=== PATIENT | female | born 1990 | race Caucasian/White ===

== ENCOUNTER 2019-08-02 13:32 | Emergency (ER) | payer BC ==
[2019-08-02 13:45] VITALS: BP 149/94; PULSE 119
[2019-08-02] MEDS ORDERED: Ketorolac 60 MG/2 ML SDV IM ONE (14:01)
--- NOTE | 2019-08-02 14:16 | EDM.PDOC ---
ED HPI GENERAL MEDICAL PROBLEM - General Chief Complaint: Lower Extremity Injury/Pain Stated Complaint: LEFT ANKLE INJURY Time Seen by Provider: 08/02/19 13:34 Source of Information: Reports: Patient History Limitations: Reports: No Limitations - History of Present Illness INITIAL COMMENTS - FREE TEXT/NARRATIVE: HISTORY AND PHYSICAL: History of present illness: Patient is a 28-year-old female who presents to the ED today with concern of left ankle injury that occurred just prior to arrival to the ED. Patient states she was taking the garbage out in her garbage can was surrounded by ice. Patient states that she twisted her left ankle and heard a pop. Patient states she caught herself before falling but has had pain with walking on the ankle since. Patient denies any prior injury or trauma to the ankle or any other symptoms or concerns. Patient denies any head injury or loss of consciousness. Patient denies fever, chills, chest pain, shortness of breath, or cough. Denies headache, neck stiff ness, change in vision, syncope, or near syncope. Denies nausea, vomiting, abdominal pain, diarrhea, constipation, or dysuria. Has not noted any blood in urine or stool. Patient has been eating and drinking appropriately. Review of systems: As per history of present illness and below otherwise all systems reviewed and negative. Past medical history: As per history of present illness and as reviewed below otherwise noncontributory. Surgical history: As per history of present illness and as reviewed below otherwise noncontributory. Social history: See social history for further information Family history: As per history of present illness and as reviewed below otherwise noncontributory. Physical exam: General: Patient is alert, oriented, and in no acute distress. Patient sitting comfortably on exam table. HEENT: Atraumatic, normocephalic, pupils equal and reactive bilaterally, negative for conjunctival pallor or scleral icterus, mucous membranes moist, TMs normal bilaterally, throat clear, neck supple, nontender, trachea midline. No drooling or trismus noted. No meningeal signs. No hot potato voice noted. Lungs: Clear to auscultation, breath sounds equal bilaterally, chest nontender. Heart: S1S2, regular rate and rhythm without overt murmur Abdomen: Soft, nondistended, nontender. Negative for masses or hepatosplenomegaly. Negative for costovertebral tenderness. Pelvis: Stable nontender. Genitourinary: Deferred. Rectal: Deferred. Skin: Intact, warm, dry. No lesions or rashes noted. Extremities: Negative for cords or calf pain. Neurovascular unremarkable. Patient has a moderate amount of edema of the left lateral malleolus with pain to palpation of this area. Patient has limited range of motion of the left ankle due to pain. Dorsalis pedis and posterior tibial pulses are grossly intact of the left lower extremity with capillary refill less than 2 seconds. Neuro: Awake, alert, oriented. Cranial nerves II through XII unremarkable. Cerebellum unremarkable. Motor and sensory unremarkable throughout. Exam nonfocal. Notes: Discussed importance for follow-up with an orthopedic provider. Voices understanding and is agreeable to plan of care. Denies any further questions or concerns at this time. Diagnostics: Ankle XR Therapeutics: Splint placed by nursing staff, crutches, Toradol Prescription: Tramadol Impression: Lateral malleolar fracture fracture, left Plan: 1. Rest, ice, elevate the affected extremity. You can apply ice 15 minutes on, 15 minutes off. Keep splint on until orthopedic follow up. 2. Tylenol and/or Ibuprofen as directed for pain management or discomfort. Take medication as prescribed for moderate-severe pain. 3. Follow up with the Orthopedic provider as discussed. Return to the ED as needed and as discussed. 4. You are to be non-weight bearing until orthopedic follow up. Definitive disposition and diagnosis as appropriate pending reevaluation and review of above. left ankle Pain Score (Numeric/FACES): 9 - Related Data Allergies Allergy/AdvReac Type Severity Reaction Status Date / Time No Known Allergies Allergy Verified 03/17/14 15:48 Home Meds: Home Meds Norethindrone AC-Eth Estradiol [Junel 1 mg-20 Mcg Tablet] 1 tab PO DAILY [History] Past Medical History Cardiovascular History: Reports: Other (See Below) Other Cardiovascular History: suns tachycardia Other Respiratory History: seasonal allergies, hx of childhood asthma Musculoskeletal History: Reports: None Other Musculoskeletal History: right knee surgery, left pinky tendon surgery, right shoulder surgery - Past Surgical History Musculoskeletal Surgical History: Reports: Knee Replacement, Other (See Below) Social & Family History - Family History Family Medical History: Noncontributory - Tobacco Use Smoking Status *Q: Never Smoker - Recreational Drug Use Recreational Drug Use: No Review of Systems - Review of Systems Review Of Systems: Comprehensive ROS is negative, except as noted in HPI. ED EXAM, GENERAL - Physical Exam Exam: See Below (see dictation) Course - Vital Signs Last Recorded V/S: Last Vital Signs Temp 97.2 F 08/02/19 13:43 Pulse 119 H 08/02/19 13:43 Resp 22 H 08/02/19 13:43 BP 149/94 H 08/02/19 13:43 Pulse Ox 95 08/02/19 13:43 - Orders/Labs/Meds Meds: Medications Discontinued Medications Generic Name Dose Route Start Last Admin Trade Name Freq PRN Reason Stop Dose Admin Ketorolac Tromethamine 60 mg 08/02/19 14:01 08/02/19 14:13 Toradol IM 08/02/19 14:02 60 mg ONETIME ONE Administration Departure - Departure Time of Disposition: 14:24 Disposition: Home, Self-Care 01 Clinical Impression: Lateral malleolar fracture Qualifiers: Encounter type: initial encounter Fracture type: closed Fracture alignment: nondisplaced Laterality: left Qualified Code(s): S82.65XA - Nondisplaced fracture of lateral malleolus of left fibula, initial encounter for closed fracture - Discharge Information Referrals: Morales Wisdom MD [Primary Care Provider] - Forms: ED Department Discharge Additional Instructions: The following information is given to patients seen in the emergency department who are being discharged to home. This information is to outline your options for follow-up care. We provide all patients seen in our emergency department with a follow-up referral. The need for follow-up, as well as the timing and circumstances, are variable depending upon the specifics of your emergency department visit. If you don't have a primary care physician on staff, we will provide you with a referral. We always advise you to contact your personal physician following an emergency department visit to inform them of the circumstance of the visit and for follow-up with them and/or the need for any referrals to a consulting specialist. The emergency department will also refer you to a specialist when appropriate. This referral assures that you have the opportunity for follow-up care with a specialist. All of these measure are taken in an effort to provide you with optimal care, which includes your follow-up. Under all circumstances we always encourage you to contact your private physician who remains a resource for coordinating your care. When calling for follow-up care, please make the office aware that this follow-up is from your recent emergency room visit. If for any reason you are refused follow-up, please contact the [facility] Emergency Department at and asked to speak to the emergency department charge nurse. [facility] [address] [place] [address] [facility] [address] [place] [id number] [facility] - Orthopedic [facility] Professional Building [address] [place] [address], [address] [place] [address] 1. Rest, ice, elevate the affected extremity. You can apply ice 15 minutes on, 15 minutes off. Keep splint on until orthopedic follow up. 2. Tylenol and/or Ibuprofen as directed for pain management or discomfort. Take medication as prescribed for moderate-severe pain. 3. Follow up with the Orthopedic provider as discussed. Return to the ED as needed and as discussed. 4. You are to be non-weight bearing until orthopedic follow up. Sepsis Event Note - Evaluation Sepsis Screening Result: No Definite Risk - Focused Exam Vital Signs: Vital Signs Temp Pulse Resp BP Pulse Ox 08/02/19 13:43 97.2 F 119 H 22 H 149/94 H 95 Date Exam was Performed: 08/02/19 Time Exam was Performed: 14:24
--- NOTE | 2019-08-02 14:17 | CR ---
Left ankle: 3 views left ankle were obtained. Comparison: No previous ankle study. Slightly displaced fracture noted within the lateral malleolus. Fracture is displaced up 3.0 mm. No additional fracture is seen. Soft tissue swelling is noted. Impression: 1. Mildly displaced lateral malleolar fracture. 2. Soft tissue swelling. Diagnostic code #3 Study was dictated in [place] Standard Time
== END 2019-08-02 14:45 | disposition home or self-care (01) ==
LOC: MW.ED 13:32
DX: S82.65XA Nondisplaced fracture of lateral malleolus of left fibula, initial encounter for closed fracture (principal); X50.1XXA Overexertion from prolonged static or awkward postures, initial encounter; Y93.89 Activity, other specified; Y92.89 Other specified places as the place of occurrence of the external cause
CPT/HCPCS: 29515; 73610; 96372; 99283; J1885

== ENCOUNTER 2019-08-06 12:01 | Day surgery (SDC) | payer BC ==
[~2019-08-06 12:01] MED LIST: Acetaminophen/HYDROcodone 325-5 MG Tab PO PRN; Lactated Ringers 1,000 ML IV SCH; ceFAZolin 2 GM in Premix Bag 1 BAG IV SCH
--- NOTE | 2019-08-06 13:28 | PCM.PREANE ---
Preanesthetic Assessment - Anesthesia/Transfusion/Family Hx Anesthesia History: Prior Anesthesia Reaction Family History of Anesthesia Reaction: No Transfusion History: No Prior Transfusion(s) - Review of Systems General: No Symptoms Pulmonary: No Symptoms Cardiovascular: No Symptoms Gastrointestinal: No Symptoms Neurological: No Symptoms Other: Reports: None - Physical Assessment NPO Status Date: 08/05/19 Vital Signs: Last Vital Signs Temp 99.0 F 08/06/19 12:50 Pulse 96 08/06/19 12:50 Resp 16 08/06/19 12:50 BP 121/73 08/06/19 12:50 Pulse Ox 96 08/06/19 12:50 Height: 5 ft 10 in Weight: 81.647 kg ASA Class: 1 Mental Status: Alert & Oriented x3 Airway Class: Mallampati = 2 Dentition: Reports: Normal Dentition ROM/Head Extension: Full Lungs: Clear to Auscultation, Normal Respiratory Effort Cardiovascular: Regular Rate, Regular Rhythm - Lab Values: Laboratory Last Values Urine HCG, Qual NEGATIVE (NEGATIVE) 08/06/19 06:00 - Allergies Allergies/Adverse Reactions: Allergies Allergy/AdvReac Type Severity Reaction Status Date / Time No Known Allergies Allergy Verified 08/05/19 12:18 - Blood Blood Available: No - Anesthesia Plan Pre-Op Medication Ordered: None - Acknowledgements Anesthesia Type Planned: General Anesthesia Pt an Appropriate Candidate for the Planned Anesthesia: Yes Alternatives and Risks of Anesthesia Discussed w Pt/Guardian: Yes Pt/Guardian Understands and Agrees with Anesthesia Plan: Yes Additional Comments: PLAN: ga/lma PreAnesthesia Questionnaire HEENT History: Reports: Other (See Below) Other HEENT History: wears glasses/contacts Cardiovascular History: Reports: Arrhythmia, Other (See Below) Other Cardiovascular History: hx of "inappropriate sinus tachycardia" Respiratory History: Reports: Asthma Other Respiratory History: has asthma as a child- no symptoms or inhaler since the age of 18 Genitourinary History: Reports: Renal Calculus Other Genitourinary History: has passes kidney stones Musculoskeletal History: Reports: Arthritis, Fracture Other Musculoskeletal History: right knee surgery, left pinky tendon surgery, right shoulder surgery Neurological History: Reports: Concussion, Migraines - Past Surgical History Head Surgeries/Procedures: Reports: None Musculoskeletal Surgical History: Reports: Arthroscopic Knee, Shoulder Surgery, Other (See Below) Other Musculoskeletal Surgeries/Procedures:: 2 right knee arthroscopies, 2 left pinky finger surgeries (tendon and joint repair), right shoulder AC reconstruction - SUBSTANCE USE Smoking Status *Q: Never Smoker Recreational Drug Use History: No - HOME MEDS Home Medications: Home Meds Norethindrone AC-Eth Estradiol [Junel 1 mg-20 Mcg Tablet] 1 tab PO DAILY [History] HYDROcodone/Ibuprofen [Vicoprofen] 1 tab PO ASDIRECTED PRN 08/05/19 [History] oxyCODONE HCl/Acetaminophen [Percocet 5-325 mg Tablet] 1 each PO TID #21 tablet 08/06/19 [Rx] oxyCODONE HCl/Acetaminophen [Percocet 5-325 mg Tablet] 1 each PO TID #21 tablet 08/06/19 [Rx] oxyCODONE HCl/Acetaminophen [Percocet 5-325 mg Tablet] 1 each PO TID #21 tablet 08/06/19 [Rx] - CURRENT (IN HOUSE) MEDS Current Meds: Current Medications Hydrocodone Bitart/Acetaminophen ([place] 325-5 Mg) 1 tab PO Q6H PRN PRN Reason: Pain Cefazolin Sodium/Dextrose 2 gm (/ Premix) 50 mls @ 100 mls/hr IV ONCALL JILLIAN Lactated Ringer's (Ringers, Lactated) 1,000 mls @ 100 mls/hr IV ASDIRECTED JILLIAN
[2019-08-06] MEDS ORDERED: Ondansetron 4 MG/2 ML SDV ONE ×2 (13:29→16:15)
[2019-08-06] MEDS ORDERED: Lidocaine 2% 5 ML SDV ONE (13:29)
[2019-08-06] MEDS ORDERED: Propofol 200 MG/20 ML SDV ONE ×2 (13:30→15:24)
[2019-08-06] MEDS ORDERED: fentaNYL 250 MCG/5 ML SDV ONE (13:30)
[2019-08-06] MEDS ORDERED: Midazolam 1 MG/ML 2 ML SDV ONE ×2 (13:30→15:24)
[2019-08-06] MEDS ORDERED: EPINEPHrine 1:10,000 1 MG/10 ML Syringe IVPUSH PRN (14:20)
[2019-08-06] MEDS ORDERED: Atropine 0.1 MG/ML 10 ML Syringe IVPUSH PRN ×2 (14:20)
[2019-08-06] MEDS ORDERED: 50% Dextrose in Water 50 ML Syringe IVPUSH PRN (14:20)
[2019-08-06] MEDS ORDERED: Albuterol 0.083% 2.5 MG/3 ML Neb Soln NEB PRN (14:20)
[2019-08-06] MEDS ORDERED: Naloxone 0.4 MG/ML Syringe IVPUSH PRN (14:20)
[2019-08-06] MEDS ORDERED: fentaNYL 100 MCG/2 ML SDV ONE (15:24)
[2019-08-06] MEDS ORDERED: Scopolamine 1.5 MG Transdermal Patch ONE (15:36)
[2019-08-06] MEDS ORDERED: ceFAZolin/Dextrose,Iso-Osmotic 2 GM/50 ML Duplex Bag IV ONE (15:39)
[2019-08-06] MEDS ORDERED: Ketorolac 30 MG/ML SDV ONE (16:15)
[2019-08-06] MEDS ORDERED: Dexamethasone 4 MG/ML 5 ML MDV ONE (16:15)
--- NOTE | 2019-08-06 16:19 | PCM.OPNOTE ---
- General Post-Op/Procedure Note Date of Surgery/Procedure: 08/06/19 Operative Procedure(s): orif left distal fibula Pre Op Diagnosis: left distal fibula fracture, closed Post-Op Diagnosis: Same Anesthesia Technique: General ET Tube Primary Surgeon: Alon Woodson EBL in mLs: 25 Complications: None Condition: Good
[2019-08-06] MEDS ORDERED: Ondansetron 4 MG/2 ML SDV IVPUSH PRN (16:23)
[2019-08-06] MEDS ORDERED: fentaNYL 100 MCG/2 ML SDV IVPUSH PRN (16:23)
[2019-08-06] MEDS ORDERED: Phenylephrine/Normal Saline 100 MCG/ML 10 ML Syringe ONE (16:47)
[2019-08-06] MEDS: HYDROmorphone 2 MG/ML Syringe IVPUSH PRN ×3 (17:05→18:00)
[2019-08-06] MEDS: fentaNYL 100 MCG/2 ML SDV IVPUSH PRN ×2 (17:13→17:19)
[2019-08-06] MEDS ORDERED: Acetaminophen/HYDROcodone 325-5 MG Tab PO PRN (17:37)
--- NOTE | 2019-08-06 17:46 | PCM.POSTAN ---
POST ANESTHESIA ASSESSMENT - MENTAL STATUS Mental Status: Alert, Oriented - VITAL SIGNS Vital Signs: Last Vital Signs Temp 37.2 C 08/06/19 12:50 Pulse 73 08/06/19 17:20 Resp 13 08/06/19 17:20 BP 108/52 L 08/06/19 17:20 Pulse Ox 96 08/06/19 17:20 - RESPIRATORY Respiratory Status: Respiratory Rate WNL, Airway Patent, O2 Saturation Stable - CARDIOVASCULAR CV Status: Blood Pressure Stable, Slow Pulse Rate - GASTROINTESTINAL GI Status: No Symptoms - PAIN Pain Score: 5 - POST OP HYDRATION Hydration Status: Adequate & Stable - OBSERVATIONS Free Text/Narrative:: The patient tolerated the procedure well. There were no apparent anesthetic complications at this time. Discharge to phase 2 per criteria.
--- NOTE | 2019-08-06 18:59 | OR ---
SURGEON: Alon Woodson DATE OF PROCEDURE: 08/06/2019 PREOPERATIVE DIAGNOSIS: Left distal fibular fracture, closed. POSTOPERATIVE DIAGNOSIS: Left distal fibular fracture, closed. PROCEDURE: Open reduction and internal fixation, left distal fibular fracture. PRIMARY SURGEON: Alon Woodson DO. ANESTHESIA: General endotracheal intubation. FLUID: Lactated Ringer's solution. ESTIMATED BLOOD LOSS: 25 mL. COMPLICATION: None. SPECIMEN: None. DISCHARGE DISPOSITION: Stable to PACU. HISTORY AND INDICATION FOR PROCEDURE: The patient was seen preoperatively by myself in the clinic. She had been seen at the ER and found to have a distal fibula fracture. Preoperative imaging confirmed the above-mentioned diagnosis. Risks and benefits of the procedure were explained to the patient. Informed consent was obtained. DETAILS OF PROCEDURE: The patient was seen preoperatively by myself and the Anesthesia staff in the preoperative holding area where the operative site was marked. She was brought to the operative suite by the Anesthesia staff where general anesthesia was administered. A well-padded tourniquet was placed on the left thigh and the left lower extremity was then prepped and draped in a sterile manner. Time-out was called identifying the correct patient, the correct procedure, the correct site, and that antibiotics had been given within appropriate period of time. The left lower extremity was exsanguinated. Tourniquet was raised to 250 mmHg. An incision was made about 1.5 cm distal to the tip of the fibula extending proximally about 12 cm. I found a rent in the fascia and then elevated directly from the bone through the soft tissues to avoid any nerve injury. The superficial peroneal nerve was not visualized. The fibular shaft was then exposed laterally. The fracture site was then spread open using an elevator and a [place], then irrigated to remove any blood clots. I then reduced the distal fibular fracture with bone tenaculum. I also then placed a lag screw across this to hold it in place. I then placed my plate, which was a distal anatomic [place] locking plate. I then placed two screws through this to get it in correct position and took films. This showed it to be in good position. I then drilled and filled the rest of the holes in the plate and then took my final films, which showed the fracture well reduced and the plate and screws to be in good position. I then had my assist close with 0 Stratafix and 3-0 nylon interrupted horizontal mattress sutures followed by Betadine-soaked Adaptic sponge, ABD, and Bernard wrap. The patient was then placed into a walker boot, nonweightbearing, and then discharged to the PACU in stable condition. [id number] / MODL /[id number]
--- NOTE | 2019-08-06 19:35 | PCM48HPAN ---
Post Anesthesia Note - EVALUATION WITHIN 48HRS OF ANESTHETIC Vital Signs in Normal Range: Yes Patient Participated in Evaluation: Yes Respiratory Function Stable: Yes Airway Patent: Yes Cardiovascular Function Stable: Yes Hydration Status Stable: Yes Pain Control Satisfactory: Yes Nausea and Vomiting Control Satisfactory: Yes Mental Status Recovered: Yes Vital Signs: Last Vital Signs Temp 36.7 C 08/06/19 17:30 Pulse 67 08/06/19 18:15 Resp 14 08/06/19 18:15 BP 110/60 08/06/19 18:15 Pulse Ox 99 08/06/19 18:15 - COMMENTS/OBSERVATIONS Free Text/Narrative:: The patient appears comfortable and in no acute distress. She has no questions at this time. Discharge home per criteria.
--- NOTE | 2019-08-06 20:01 | CR ---
Left ankle: 2 fluoroscopic spot views were obtained utilizing C-arm device. Comparison: Prior left ankle exam of 08/02/19. Study shows reduction and placement of plate and screws across previous lateral malleolus fracture. Ankle mortise is symmetric. Fluoroscopy time is given as 4.0 seconds. Impression: 1. Procedural study as described above. Diagnostic code #2 This report was dictated in [place] Standard Time
[2019-08-06 20:28] VITALS: BP 114/66; PULSE 68
== END 2019-08-06 20:00 | disposition home or self-care (01) ==
LOC: MW.SDS 12:01
PROVIDERS: ATTEND Orthopaedic Surgery
DX: S82.832A Other fracture of upper and lower end of left fibula, initial encounter for closed fracture (principal); J45.909 Unspecified asthma, uncomplicated; M19.90 Unspecified osteoarthritis, unspecified site; G43.909 Migraine, unspecified, not intractable, without status migrainosus; W00.0XXA Fall on same level due to ice and snow, initial encounter; Z79.3 Long term (current) use of hormonal contraceptives
CPT/HCPCS: 27792; 76000; 81025; A9270; J0131; J0690; J1100; J1170; J1885; J2001; J2250; J2370; J2405; J2704; J3010; J7120; 01480

== ENCOUNTER 2021-08-29 07:21 | Day surgery (SDC) | payer BC ==
[2021-08-29] MEDS ORDERED: Lactated Ringers 1,000 ML IV SCH (08:15)
[2021-08-29] MEDS ORDERED: Scopolamine 1.5 MG Transdermal Patch ONE (08:17)
[2021-08-29] MEDS ORDERED: Albuterol 0.083% 2.5 MG/3 ML Neb Soln NEB PRN (08:25)
[2021-08-29] MEDS ORDERED: HYDROmorphone 1 MG/ML Syringe IVPUSH PRN (08:25)
[2021-08-29] MEDS ORDERED: Morphine 2 MG/ML SYRINGE IVPUSH PRN (08:25)
[2021-08-29] MEDS ORDERED: Metoclopramide 10 MG/2 ML SDV IVPUSH PRN (08:25)
[2021-08-29] MEDS ORDERED: Naloxone 0.4 MG/ML SDV IVPUSH PRN (08:25)
[2021-08-29] MEDS ORDERED: Ondansetron 4 MG/2 ML SDV IVPUSH PRN (08:25)
[2021-08-29] MEDS ORDERED: fentaNYL 100 MCG/2 ML SDV IVPUSH PRN (08:25)
[2021-08-29] MEDS ORDERED: Scopolamine 1.5 MG Transdermal Patch TOP ONE (08:26)
[2021-08-29] MEDS ORDERED: fentaNYL 250 MCG/5 ML SDV ONE (08:39)
[2021-08-29] MEDS ORDERED: Propofol 200 MG/20 ML SDV ONE ×2 (08:39→09:28)
[2021-08-29] MEDS ORDERED: Acetaminophen/HYDROcodone 325-5 MG Tab PO PRN (09:20)
[2021-08-29] MEDS ORDERED: Ketorolac 30 MG/ML SDV IVPUSH ONE (09:20)
[2021-08-29 09:58] VITALS: PULSE 68
[2021-08-29 10:12] VITALS: BP 113/56
[2021-08-30] MEDS ORDERED: Multivitamin Tab PO SCH (09:00)
== END 2021-08-29 10:21 | disposition home or self-care (01) ==
LOC: MW.SDS 07:21
PROVIDERS: ATTEND Obstetrics & Gynecology
DX: D06.1 Carcinoma in situ of exocervix (principal); J45.909 Unspecified asthma, uncomplicated; G43.909 Migraine, unspecified, not intractable, without status migrainosus; Z79.899 Other long term (current) drug therapy
CPT/HCPCS: 36415; 57460; 84703; 85014; 85018; J1885; J2704; J3010; J7120; 00940

== ENCOUNTER 2022-08-03 17:55 | Emergency (ER) | payer BC ==
[2022-08-03] MEDS ORDERED: Cyclobenzaprine 5 MG Tab PO STA (19:22)
[2022-08-03] MEDS ORDERED: Ketorolac 30 MG/ML SDV IM STA (19:22)
[2022-08-03] MEDS ORDERED: Acetaminophen/HYDROcodone 325-5 MG Tab PO ONE (22:54)
[2022-08-03 23:03] VITALS: BP 110/62; PULSE 68
== END 2022-08-03 23:00 | disposition home or self-care (01) ==
LOC: MW.ED 17:55
DX: S39.012A Strain of muscle, fascia and tendon of lower back, initial encounter (principal); M51.26 Other intervertebral disc displacement, lumbar region; M47.816 Spondylosis without myelopathy or radiculopathy, lumbar region; E27.8 Other specified disorders of adrenal gland; J45.909 Unspecified asthma, uncomplicated
CPT/HCPCS: 72128; 72131; 81025; 96372; 99284; A9270; J1885

== ENCOUNTER 2023-05-08 06:31 | Day surgery (SDC) | payer OTHER ==
[~2023-05-08 06:31] MED LIST changes: -Acetaminophen/HYDROcodone 325-5 MG Tab PO PRN; +Sodium Chloride 0.9% 10 ML Syringe FLUSH PRN; +Sodium Chloride 0.9% 2.5 ML Syringe FLUSH PRN; +Sodium Chloride 0.9% 20 ML SDV IV PRN; -ceFAZolin 2 GM in Premix Bag 1 BAG IV SCH
[2023-05-08 07:15] LABS: HEMATOCRIT 38.1 % (37.0-47.0); HEMOGLOBIN 13.3 g/dL (12.0-16.0); MEAN CORPUSCULAR HEMOGLOBIN 30.4 pg (28.0-32.0); MEAN CORPUSCULAR HGB CONC 34.9 g/dL (32.0-36.0); MEAN PLATELET VOLUME 9.9 fL (9.4-12.3); PLATELET COUNT,PLT 251 K/uL (150-400); RED BLOOD CELL COUNT 4.38 M/uL (4.10-5.30); WHITE BLOOD CELL COUNT,WBC 7.25 K/uL (3.9-11.3)
[2023-05-08] MEDS ORDERED: Lidocaine 2% 5 ML SDV ONE (07:28)
[2023-05-08] MEDS ORDERED: Morphine 2 MG/ML SYRINGE IVPUSH PRN (07:28)
[2023-05-08] MEDS ORDERED: droPERidol 5 MG/2 ML SDV IVPUSH PRN (07:28)
[2023-05-08] MEDS ORDERED: fentaNYL 50 MCG/ML SDV IVPUSH PRN (07:28)
[2023-05-08] MEDS ORDERED: Propofol 200 MG/20 ML SDV ONE (07:28)
[2023-05-08] MEDS ORDERED: Metoclopramide 10 MG/2 ML SDV IVPUSH PRN (07:28)
[2023-05-08] MEDS ORDERED: Naloxone 0.4 MG/ML SDV IVPUSH PRN (07:28)
[2023-05-08] MEDS ORDERED: Sugammadex Sodium 200 MG/2 ML VIAL ONE (07:28)
[2023-05-08] MEDS ORDERED: Albuterol 0.083% 2.5 MG/3 ML Neb Soln NEB PRN (07:28)
[2023-05-08] MEDS ORDERED: Ondansetron 4 MG/2 ML SDV ONE ×2 (07:28→08:52)
[2023-05-08] MEDS ORDERED: Ketorolac 30 MG/ML SDV ONE (07:28)
[2023-05-08] MEDS ORDERED: Dexamethasone 4 MG/ML 5 ML MDV ONE (07:28)
[2023-05-08] MEDS ORDERED: Ondansetron 4 MG/2 ML SDV IVPUSH PRN (07:28)
[2023-05-08] MEDS ORDERED: Rocuronium Bromide 50 MG/5 ML Syringe ONE (07:28)
[2023-05-08] MEDS ORDERED: HYDROmorphone 1 MG/ML Syringe IVPUSH PRN (07:28)
[2023-05-08] MEDS ORDERED: fentaNYL 100 MCG/2 ML SDV ONE ×2 (07:31→07:32)
[2023-05-08] MEDS ORDERED: Bupivacaine 0.25% 30 ML SDV ONE ×2 (07:37→07:47)
[2023-05-08] MEDS ORDERED: EPINEPHrine 1 MG/1 ML Amp ONE (07:37)
[2023-05-08] MEDS ORDERED: Ropivacaine 0.5% 5 MG/ML 30 ML SDV ONE (07:37)
[2023-05-08] MEDS ORDERED: Methylene Blue 1% 100MG/10 ML SDV ONE (07:47)
[2023-05-08] MEDS ORDERED: Ketamine 500 mg/10 ML MDV ONE (08:13)
[2023-05-08 11:29] VITALS: BP 99/54; PULSE 67
== END 2023-05-08 11:35 | disposition home or self-care (01) ==
LOC: MW.SDS 06:31
PROVIDERS: ATTEND Obstetrics & Gynecology
DX: N83.8 Other noninflammatory disorders of ovary, fallopian tube and broad ligament (principal); N80.329 Endometriosis of the posterior cul-de-sac, unspecified depth; N83.201 Unspecified ovarian cyst, right side; G43.909 Migraine, unspecified, not intractable, without status migrainosus; Z79.899 Other long term (current) drug therapy; Z98.890 Other specified postprocedural states; Q50.6 Other congenital malformations of fallopian tube and broad ligament
CPT/HCPCS: 36415; 58350; 58662; 84703; 85027; C1729; J0131; J0171; J1100; J1170; J1885; J2405; J2704; J2795; J3010; J3490; J7030; J7120; Q9968

== ENCOUNTER 2023-07-18 18:38 | Emergency (ER) | payer OTHER ==
[2023-07-18] MEDS ORDERED: Acetaminophen/HYDROcodone 325-5 MG Tab PO ONE (19:16)
[2023-07-18 20:50] VITALS: BP 119/67; PULSE 103
== END 2023-07-18 20:50 | disposition home or self-care (01) ==
LOC: MW.ED 18:38
DX: S49.92XA Unspecified injury of left shoulder and upper arm, initial encounter (principal); V87.7XXA Person injured in collision between other specified motor vehicles (traffic), initial encounter; Y92.410 Unspecified street and highway as the place of occurrence of the external cause
CPT/HCPCS: 70450; 72125; 73030; 99284; A9270